=== PATIENT | female | born 2000 | race Caucasian/White ===

== ENCOUNTER 2019-06-11 17:43 | Emergency (ER) | payer BC ==
[2019-06-11] MEDS ORDERED: Ondansetron ODT TAB* 4 MG PO ONE (19:41)
--- NOTE | 2019-06-11 19:43 | UC ---
Throat Pain/Nasal [place] HPI - HPI Summary HPI Summary: 18 yo female with the onset of fatigue and lassitude last PM This AM developed a sore throat, fever and severe myalgias Mild headache no stiff neck no cough or runny nose no CP or SOB no UTI symptoms + anorexia and nausea vomited once no tick bite - History of Current Complaint Chief Complaint: UCRespiratory Stated Complaint: FLU LIKE SYMPTOMS,FEVER Hx Obtained From: Patient Hx Last Menstrual Period: 05/25/19 Onset/Duration: Gradual Onset, Lasting Hours Severity: Severe Pain Intensity: 8 Pain Scale Used: 0-10 Numeric Cough: None Associated Signs & Symptoms: Positive: Fever, Vomiting - x1. Negative: Dysphagia, FB Sensation, Drooling, Wheezing, Hoarseness, Sinus Discomfort, Nasal Discharge, Rash - Epiglottits Risk Factors Epiglottis Risk Factors: Negative - Allergies/Home Medications Allergies/Adverse Reactions: Allergies Allergy/AdvReac Type Severity Reaction Status Date / Time No Known Allergies Allergy Verified 06/11/19 18:42 PMH/Surg Hx/FS Hx/Imm Hx Previously Healthy: Yes - Surgical History Surgical History: None - Family History Known Family History: Positive: Non-Contributory - Social History Alcohol Use: None Substance Use Type: None Smoking Status (MU): Never Smoked Tobacco Review of Systems All Other Systems Reviewed And Are Negative: Yes Constitutional: Positive: Fever, Chills, Fatigue Eyes: Positive: Negative ENT: Positive: Sore Throat. Negative: Dental Pain, Ear Ache, Nasal Discharge, Sinus Congestion, Sinus Pain/Tenderness Respiratory: Positive: Negative Cardiovascular: Positive: Negative Gastrointestinal: Positive: Vomiting - x1, Nausea Genitourinary: Positive: Negative Motor: Positive: Negative Neurovascular: Positive: Negative Musculoskeletal: Positive: Myalgia - severe Neurological: Positive: Headache - mild Psychological: Positive: Negative Physical Exam Triage Information Reviewed: Yes Appearance: Well-Appearing, No Pain Distress, Well-Nourished Vital Signs: Initial Vital Signs Temp 99.8 F 06/11/19 18:43 Pulse 118 06/11/19 18:43 Resp 16 06/11/19 18:43 BP 122/65 06/11/19 18:43 Pulse Ox 99 06/11/19 18:43 Vital Signs Reviewed: Yes Eyes: Positive: Conjunctiva Clear ENT: Positive: Hearing grossly normal, Pharyngeal erythema, TMs normal, Tonsillar swelling, Tonsillar exudate, Uvula midline. Negative: Nasal congestion, Nasal drainage, Trismus, Muffled voice, Hoarse voice, Dental tenderness, Sinus tenderness Dental Exam: Normal Neck: Positive: Supple, Nontender, Enlarged Nodes @ - ant cerv Respiratory: Positive: Lungs clear, Normal breath sounds, No respiratory distress, No accessory muscle use Cardiovascular: Positive: RRR, No Murmur, Tachycardia Abdomen Description: Positive: Nontender, No Organomegaly, Bruit. Negative: CVA Tenderness (R), CVA Tenderness (L) Bowel Sounds: Positive: Present Musculoskeletal: Positive: ROM Intact, No Edema Neurological: Positive: Alert Psychological Exam: Normal Skin Exam: Normal Diagnostics - Laboratory Lab Results: strep (-) Throat Pain/Nasal Course/Dx - Course Course Of Treatment: strep (-) - Differential Dx/Diagnosis Provider Diagnosis: Exudative tonsillitis Discharge ED - Sign-Out/Discharge Documenting (check all that apply): Patient Departure All imaging exams completed and their final reports reviewed: No Studies - Discharge Plan Condition: Stable Disposition: HOME Prescriptions: Ondansetron TAB* [Zofran Tab*] 4 mg PO Q6H PRN #10 tab PRN Reason: Nausea Patient Education Materials: Tonsillitis (ED) Forms: *School Release Referrals: No Primary Care Phys,NOPCP [Primary Care Provider] - Additional Instructions: your strep test was (-) a culture is pending rest fluids tylenol or advil if still febrile in 48 hours I suggest recheck recheck sooner for new or worsening symptoms - Billing Disposition and Condition Condition: STABLE Disposition: Home
[2019-06-11 19:45] VITALS: BP 113/47
--- NOTE | 2019-06-15 12:39 | ED ---
Progress - Progress Note Progress Note: FInal Cx report reviewed: Normal asya. Strep neg and patient had exudative tonsillitis. RN to call patient and inform results . Advise that it can be mononucleosis. If she plays any contact sports , she should get it checked. Treatment likely will not change but if she has mono , she should not participate in contact sports for 4 wee ks. Course/Dx - Diagnoses Provider Diagnoses: Exudative tonsillitis Discharge ED - Sign-Out/Discharge Documenting (check all that apply): Post-Discharge Follow Up All imaging exams completed and their final reports reviewed: No Studies - Discharge Plan Condition: Stable Disposition: HOME Prescriptions: Ondansetron TAB* [Zofran Tab*] 4 mg PO Q6H PRN #10 tab PRN Reason: Nausea Patient Education Materials: Tonsillitis (ED) Forms: *School Release Referrals: No Primary Care Phys,NOPCP [Primary Care Provider] - Additional Instructions: your strep test was (-) a culture is pending rest fluids tylenol or advil if still febrile in 48 hours I suggest recheck recheck sooner for new or worsening symptoms - Billing Disposition and Condition Condition: STABLE Disposition: Home
== END 2019-06-11 19:58 | disposition home or self-care (01) ==
LOC: UCCORT 17:43
DX: J03.90 Acute tonsillitis, unspecified (principal)
CPT/HCPCS: 87070; 87651; 99202; A9270-GY; G0463